=== PATIENT | male | born 1965 | race Caucasian/White ===

== ENCOUNTER 2022-11-12 19:37 | Emergency (ER) | payer BC ==
[~2022-11-12] VITALS: Ht 165.1 cm; Wt 81.6 kg
[2022-11-12 19:50] VITALS: BP_SYST 133
[2022-11-12 20:43] LABS: BASOPHILS # (AUTO) 0.1 K/uL (0.0-0.2); EOSINOPHILS # (AUTO) 0.2 K/uL (0.0-0.4); HEMOGLOBIN 17.4 g/dL (14.0-18.0); LYMPHOCYTES # (AUTO) 3.3 K/uL (1.0-5.5); MEAN CORPUSCULAR HGB CONC 35 % (32-36); MONOCYTES # (AUTO) 0.5 K/uL (0.0-1.0); WHITE BLOOD COUNT (AUTO) 8.8 K/uL (4.8-10.8)
[2022-11-12 20:49] LABS: EOSINOPHILS % (AUTO) 2.2 % (0.0-4.0); HEMATOCRIT 49.5 % (36-54); LYMPHOCYTES % (AUTO) 37.6 % (20.5-51.5); MEAN CORPUSCULAR HEMOGLOBIN 33 pg (27-31); MEAN CORPUSCULAR VOLUME 93 fL (79.0-98.0); MONOCYTES % (AUTO) 5.9 % (1.7-9.3); NEUTROPHILS # (AUTO) 4.7 K/uL (1.8-7.7); NEUTROPHILS % (AUTO) 53.3 % (40.0-70.0); RED BLOOD CELL COUNT(AUTO) 5.33 MIL/uL (4.2-6.2); RED CELL DISTRIBUTION WIDTH 13.4 % (9.0-15.0)
[2022-11-12 20:54] LABS: ANION GAP 6 (5-15); CALCIUM 9.2 mg/dL (8.4-11.0); CHLORIDE 102 mmol/L (98-107); CREATININE 1.11 mg/dL (0.55-1.30); GLUCOSE 126 mg/dL (70-99); UREA NITROGEN, BLOOD 16 mg/dL (8-21)
[2022-11-12 20:59] LABS: PLATELET COUNT (AUTO) 190 K/uL (130-430)
[2022-11-12 21:02] LABS: ALANINE AMINOTRANSFERASE 68 U/L (12-78); ALBUMIN 4.1 g/dL (3.4-4.8); ASPARTATE AMINOTRANSFERASE 40 U/L (10-37); TOTAL BILIRUBIN 0.9 mg/dL (0.0-1.0)
[2022-11-12 21:03] LABS: GFR AFRICAN AMERICAN 88 mL/min (>90)
== END 2022-11-12 23:42 | disposition home or self-care (01) ==
LOC: SED 19:37
DX: R00.2 Palpitations (principal); Z79.899 Other long term (current) drug therapy
CPT/HCPCS: 36415; 71045; 80053; 84484; 85025; 85379; 93005; 99285